=== PATIENT | male | born 1970 | race Caucasian/White ===

== ENCOUNTER 2021-05-04 07:46 | Emergency (ER) | payer OTHER ==
[~2021-05-04] VITALS: Ht 180.3 cm; Wt 72.6 kg
[2021-05-04] MEDS ORDERED: PREDNISONE 20 M20 MG PO (09:12)
[2021-05-04] MEDS ORDERED: NAPROSYN500 MG PO (09:12)
[2021-05-04] MEDS ORDERED: FLEXERIL PO (09:12)
[2021-05-04 09:30] VITALS: BP 126/89
== END 2021-05-04 09:38 | disposition home or self-care (01) ==
LOC: ER 07:46
DX: M54.12 Radiculopathy, cervical region (principal); F12.90 Cannabis use, unspecified, uncomplicated